=== PATIENT | male | born 1935 | race Caucasian/White ===

== ENCOUNTER 2017-10-11 14:35 | Emergency (ER) | payer OTHER ==
[~2017-10-11] VITALS: Ht 180.3 cm; Wt 72.1 kg
[2017-10-11 15:40] LABS: ADD MIUA? YES; BILIRUBIN NEGATIVE; BLOOD NEGATIVE; COLOR YELLOW ((YELLOW)); GLUCOSE (STRIP) NEGATIVE; KETONES NEGATIVE; LEUKOCYTES NEGATIVE; NITRITE NEGATIVE; PROTEIN (STRIP) NEGATIVE; SPECIFIC GRAVITY 1.014 (1.000-1.030); UROBILINOGEN 0.2 MG/DL (0.2-1.0)
[2017-10-11 15:52] LABS: BACTERIA NONE SEEN /HPF; EPITHELIAL CELLS RARE /HPF; HYALINE CASTS 0-5 /LPF; MUCUS TRACE /LPF; RED BLOOD CELLS 0-5 /HPF (0-5); UCUL ADDED? NO; WHITE BLOOD CELLS 0-5 /HPF (0-5)
[2017-10-11 16:05] LABS: EOSINOPHIL (%) 0.5 % (0-5); EOSINOPHIL COUNT 0.1 K/uL (0-0.3); HEMATOCRIT 36.8 % (38.0-50.0); IMMATURE GRANULOCYTE (%) 0.4 % (0.0-0.7); INSTRUMENT ABS NEUTROPHIL CT 6.8 K/uL; LYMPHOCYTE COUNT 1.9 K/uL (1.0-2.8); MCH 30.4 PG (29.0-34.0); MCV 89.5 FL (86-99); MEAN PLAT.VOLUME 10.4 uM^3 (9.0-12.4); MONOCYTE (%) 8.2 % (3-12); MONOCYTE COUNT 0.8 K/uL (0-0.8); NEUTROPHIL (%) 70.7 % (45-76); NEUTROPHIL COUNT 6.8 K/uL (1.8-6.4); PLATELET COUNT 341 K/uL (156-360); RBC DIS.WIDTH-SD 45.5 % (39-53); RED BLOOD COUNT 4.11 M/uL (4.00-5.50); WHITE BLOOD COUNT 9.6 K/uL (4.1-10.2)
[2017-10-11 16:10] LABS: CHLORIDE 103 mEq/L (99-109); POTASSIUM 3.6 mEq/L (3.7-5.4); SODIUM 137 mEq/L (136-147)
[2017-10-11 16:12] LABS: GLUCOSE 96 mg/dL (70-99)
[2017-10-11 16:14] LABS: ANION GAP 11 MEQ/L (2-14); TOTAL BILIRUBIN 0.7 mg/dL (0.0-1.0)
[2017-10-11 16:16] LABS: ALKALINE PHOSPHATASE 147 IU/L (3-129); GFR ESTIMATE (CALCULATED) > 59 mL/min/
[2017-10-11 16:17] LABS: UREA NITROGEN (BUN) 15 mg/dL (9-23)
[2017-10-11 16:25] LABS: TROP-I INTERPRETATION NEGATIVE; TROPONIN-I 0.01 ng/mL (0.0-0.30)
[2017-10-11 18:10] VITALS: BP 158/68
== END 2017-10-11 18:13 | disposition home or self-care (01) ==
LOC: EME 14:35
PROVIDERS: Emergency Medicine
DX: I10 Essential (primary) hypertension (principal); R06.02 Shortness of breath; F41.9 Anxiety disorder, unspecified; J44.9 Chronic obstructive pulmonary disease, unspecified; Z87.891 Personal history of nicotine dependence
CPT/HCPCS: 70450; 71020; 80053; 81003; 84484; 85025; 85379; 94640; 99281; 99285; J7030

== ENCOUNTER 2017-12-17 13:03 | Emergency (ER) | payer OTHER ==
[~2017-12-17] VITALS: Ht 180.3 cm; Wt 72.9 kg
[2017-12-17 13:51] LABS: HEMATOCRIT 45.4 % (38.0-50.0); HEMOGLOBIN 15.2 G/DL (12.5-16.6); MCH 30.3 PG (29.0-34.0); MCHC 33.5 G/DL (30.0-36.0); MCV 90.6 FL (86-99); PLATELET COUNT 281 K/uL (156-360); RBC DIS.WIDTH-CV 14.4 % (11.8-14.6); RED BLOOD COUNT 5.01 M/uL (4.00-5.50); WHITE BLOOD COUNT 9.1 K/uL (4.1-10.2)
[2017-12-17 14:03] LABS: ALBUMIN 4.1 g/dL (3.2-4.8); CHLORIDE 103 mEq/L (99-109); POTASSIUM 4.7 mEq/L (3.7-5.4); SODIUM 139 mEq/L (136-147)
[2017-12-17 14:04] LABS: APPEARANCE SL.HAZY ((CLEAR)); BILIRUBIN NEGATIVE; BLOOD NEGATIVE; COLOR YELLOW ((YELLOW)); GLUCOSE (STRIP) NEGATIVE; KETONES NEGATIVE; LEUKOCYTES LARGE; NITRITE NEGATIVE; PROTEIN (STRIP) NEGATIVE; SPECIFIC GRAVITY 1.009 (1.000-1.030); UROBILINOGEN 0.2 MG/DL (0.2-1.0)
[2017-12-17 14:05] LABS: GLUCOSE 94 mg/dL (70-99)
[2017-12-17 14:07] LABS: TOTAL BILIRUBIN 0.9 mg/dL (0.0-1.0)
[2017-12-17 14:09] LABS: ALKALINE PHOSPHATASE 87 IU/L (3-129); GFR ESTIMATE (CALCULATED) > 59 mL/min/ (58.99-99999)
[2017-12-17 14:10] LABS: UREA NITROGEN (BUN) 19 mg/dL (9-23)
[2017-12-17 14:11] LABS: AST (GOT) 24 IU/L (2-34)
[2017-12-17 14:12] LABS: ALT (GPT) 27 IU/L (3-49)
[2017-12-17 14:17] LABS: BACTERIA 1+ /HPF; EPITHELIAL CELLS RARE /HPF; HYALINE CASTS 0-5 /LPF; MUCUS TRACE /LPF; UCUL ADDED? YES; WHITE BLOOD CELLS TNTC /HPF (0-5)
[2017-12-17] MEDS ORDERED: LEVAQUIN750 MG PO (15:55)
[2017-12-17 16:45] VITALS: BP 177/87
== END 2017-12-17 16:53 | disposition home or self-care (01) ==
LOC: EME 13:03
DX: N39.0 Urinary tract infection, site not specified (principal); I10 Essential (primary) hypertension; Z79.01 Long term (current) use of anticoagulants; Z87.891 Personal history of nicotine dependence
CPT/HCPCS: 80053; 81003; 85027; 87077; 87086; 87186; 99281; 99284